=== PATIENT | female | born 1935 | race Caucasian/White ===

== ENCOUNTER 2019-05-14 14:52 | Emergency (ER) | payer OTHER ==
[~2019-05-14] VITALS: Ht 149.9 cm; Wt 86.2 kg
[~2019-05-14 14:52] MED LIST: CARB200T4 PO; CEPH500C PO; DOXE25CA2 PO; FOLI1TAB6 PO; INDA2.5T PO; MECL-87 PO; METH2.5T3 PO; RANI150C11 PO
[2019-05-14] MEDS ORDERED: ENOXAPARIN SOD 100 MG/1 ML SYRINGE SC ONE (15:30)
[2019-05-14] MEDS ORDERED: METOPROLOL TARTRATE 1MG/1ML-5ML VIAL IV ONE (15:30)
[2019-05-14 15:59] LABS: Eosinophils # (auto) 0 uL; Nucleated Red Blood Cells % 0.1 %
[2019-05-14 16:03] LABS: Basophils # (auto) 0 uL; Basophils % (auto) 0.3 % (0.0-2.0); Eosinophils % (auto) 0.2 % (0.0-7.0); Hematocrit 40.4 % (36.0-46.0); Lymphocytes # (auto) 2.2 uL; Lymphocytes % (auto) 13.9 % (10.0-50.0); Mean Corpuscular Hemoglobin 32.4 pg (28.0-32.0); Mean Corpuscular Hgb Conc. 34.6 g/dL (32.0-36.0); Mean Corpuscular Volume 93.5 fL (80.0-100.0); Monocytes # (auto) 1.2 uL; Monocytes % (auto) 7.8 % (0.0-12.0); Neutrophils # (auto) 12.1 uL; Neutrophils % (auto) 77.8 % (37.0-80.0); Red Blood Cells 4.31 10^6/uL (4.0-5.20); Red Cell Distribution Width 13.3 % (11.8-14.3); White Blood Cell 15.6 10^3/uL (4.4-10.8)
[2019-05-14 16:12] LABS: Platelet Count (auto) 553 10^3/uL (140-450)
[2019-05-14 16:16] LABS: Albumin 2.4 g/dL (3.4-5.0); Calcium 8.9 mg/dL (8.5-10.1)
[2019-05-14 16:19] LABS: BUN/Creatinine Ratio 42.7; Magnesium 1.8 mg/dL (1.6-2.6); Total Protein 7.2 g/dL (6.4-8.2)
[2019-05-14 16:20] LABS: INR 1.16 (0.9-1.15); Partial Thromboplastin Time 26.6 sec (23.64-32.05)
[2019-05-14 16:27] LABS: Potassium 2.2 mmol/L (3.5-5.1)
[2019-05-14] MEDS ORDERED: POTASSIUM CHL 20MEQ/100ML 100 ML IV SCH (16:30)
[2019-05-14] MEDS ORDERED: POTASSIUM EFFERVESENT TAB 25 MEQ PO ONE (16:30)
[2019-05-14] MEDS ORDERED: POTASSIUM CHLORIDE 40 MEQ, LIDOCAINE 1% (LOCAL ANESTH.) 4 ML in SODIUM CHL 0.9% 100 ML IV ONE (16:30)
[2019-05-14] MEDS ORDERED: IOHEXOL 350 MG/ML 100ML IJ ONE (16:32)
[2019-05-14 16:46] LABS: Urine Bacteria NONE SEEN /hpf (None Seen); Urine Blood TRACE /uL (Negative); Urine Hyaline Cast MOD /lpf (0 - 2); Urine Mucus FEW (None Seen); Urine Specific Gravity 1.024 (1.001-1.035); Urine WBC 1 /hpf (0 - 5); Urine WBC Clumps PRESENT /hpf (None Seen)
[2019-05-14] MEDS ORDERED: DILTIAZEM HCL 25 MG/5 ML VIAL IV ONE ×2 (17:30)
[2019-05-14 18:00] VITALS: BP 127/74
== END 2019-05-14 18:11 | disposition short-term general hospital (02) ==
LOC: EDUNIT# 14:52 → ER 14:52 → EDBD 14:52 → ER 18:11
DX: I74.3 Embolism and thrombosis of arteries of the lower extremities (principal); I48.91 Unspecified atrial fibrillation; E11.9 Type 2 diabetes mellitus without complications
CPT/HCPCS: 36415; 51702; 71045; 75635; 80053; 81001; 83735; 83880; 84484; 85025; 85610; 85730; 93005; 93926; 94761; 96365; 99285; J1650; J2001; J3480; Q9967

== ENCOUNTER 2019-06-01 12:16 | Inpatient (IN) | payer OTHER ==
[~2019-06-01] VITALS: Ht 149.9 cm; Wt 84.7 kg
[2019-06-01 13:16] LABS: Basophils # (auto) 0.1 uL; Eosinophils # (auto) 0.1 uL; Hemoglobin 12.9 g/dL (12.2-16.2); Nucleated Red Blood Cells % 0.1 %; White Blood Cell 9.4 10^3/uL (4.4-10.8)
[2019-06-01 13:19] LABS: Basophils % (auto) 0.9 % (0.0-2.0); Eosinophils % (auto) 0.7 % (0.0-7.0); Hematocrit 38.4 % (36.0-46.0); Lymphocytes # (auto) 1.4 uL; Lymphocytes % (auto) 15.1 % (10.0-50.0); Mean Corpuscular Hemoglobin 31.9 pg (28.0-32.0); Mean Corpuscular Hgb Conc. 33.6 g/dL (32.0-36.0); Monocytes # (auto) 0.5 uL; Monocytes % (auto) 5.8 % (0.0-12.0); Neutrophils # (auto) 7.3 uL; Neutrophils % (auto) 77.5 % (37.0-80.0); Red Blood Cells 4.04 10^6/uL (4.0-5.20); Red Cell Distribution Width 14.6 % (11.8-14.3)
[2019-06-01 13:39] LABS: Albumin 2.4 g/dL (3.4-5.0); Anion Gap 10 (5-15); Blood Urea Nitrogen 17 mg/dL (7-18); Calcium 8.3 mg/dL (8.5-10.1); Carbon Dioxide 29 mmol/L (21-32); Chloride 96 mmol/L (98-107); Glucose 147 mg/dL (74-106); Sodium 135 mmol/L (136-145)
[2019-06-01 13:45] LABS: Alanine Aminotransferase 25 U/L (13-56); Alkaline Phosphatase 167 U/L (45-117); Aspartate Aminotransferase 36 U/L (15-37); BUN/Creatinine Ratio 35.4; GFR African American 159 mL/min; GFR Non-African American 132 mL/min; Total Protein 6.5 g/dL (6.4-8.2)
[2019-06-01 14:13] LABS: Potassium 2.8 mmol/L (3.5-5.1)
[2019-06-01] MEDS ORDERED: POTASSIUM EFFERVESENT TAB 25 MEQ PO ONE (14:45)
[2019-06-01] MEDS ORDERED: DILT60TA27 PO (15:12)
[2019-06-01 15:13] LABS: Platelet Count (auto) 663 10^3/uL (140-450)
[2019-06-01] MEDS ORDERED: ONDANSETRON HCL 4 MG/2 ML VIAL IV ONE (15:15)
[2019-06-01] MEDS ORDERED: HYDR-4833 PO (15:45)
[2019-06-01] MEDS ORDERED: METF-370 PO (15:45)
[2019-06-01] MEDS ORDERED: RIVA20TA PO (15:45)
[2019-06-01 16:02] LABS: Urine Bacteria FEW /hpf (None Seen); Urine Blood 2+ /uL (Negative); Urine Budding Yeast MODERATE /hpf (None Seen); Urine Mucus FEW (None Seen); Urine Specific Gravity 1.019 (1.001-1.035); Urine WBC 42 /hpf (0 - 5)
[2019-06-01] MEDS ORDERED: cefTRIAXone 1GM/50ML D5W 50 ML IV ONE ×2 (16:30→17:45)
[2019-06-01] MEDS ORDERED: ONDANSETRON HCL 4 MG/2 ML VIAL IV PRN (17:45)
[2019-06-01] MEDS ORDERED: NITROGLYCERIN 0.4 MG SL TAB SL PRN (17:45)
[2019-06-01] MEDS ORDERED: DEXTROSE (50%) 50ML SYRG IV PRN (17:45)
[2019-06-01] MEDS ORDERED: DOCUSATE SOD 100 MG CAP PO PRN (17:45)
[2019-06-01] MEDS ORDERED: MORPHINE SULF INJ 2 MG/ML SYRINGE 1ML IV PRN ×2 (17:45)
[2019-06-01] MEDS ORDERED: ACETAMINOPHEN 500 MG TAB PO PRN (17:45)
[2019-06-01] MEDS ORDERED: VANCOMYCIN PER PHARMACY 0 MG IV SCH (17:45)
[2019-06-01] MEDS: SOD CHL 0.45% WITH 20MEQ KCL 1,000 ML IV SCH (18:52)
[2019-06-01] MEDS: VANCOMYCIN 1GM/250ML 250 ML IV SCH (20:00)
[2019-06-01 22:00] VITALS: BP 101/73
[2019-06-01] MEDS: ACCU-CHEK COMFORT CURVE STRIP VI SCH (22:00)
[2019-06-01] MEDS: DOXEPIN HCL 25 MG CAPSULE PO SCH (22:00)
--- NOTE | 2019-06-01 23:00 | NUR ---
Admitted to room 75B. Seems very tired and lethargic. Delayed response to questions. Unable to answer some questions . Very obese and unable to turn on her own. Marina in place. IV patent to right hand 20 g. Infusing fluids per orders. 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 Will reposition q2. Bed alarm placed and call light within reach
[2019-06-01] MEDS: carBAMazepine 200 MG TAB PO SCH (23:44)
[2019-06-01] MEDS: InsuLIN REG 1unit/0.01ml Soln (100units/ml) SC SCH (23:51)
[2019-06-02 02:00] VITALS: BP 101/73
--- NOTE | 2019-06-02 02:00 | NUR ---
Patient seems much more alert. unable to get comfortable. Will medicate per orders. Repositioned patient and snack given. Continuing to monitor. Calll light within reach
[2019-06-02] MEDS: SOD CHL 0.45% WITH 20MEQ KCL 1,000 ML IV SCH ×3 (03:45→23:45)
[2019-06-02 05:00] VITALS: BP 109/74
[2019-06-02 05:59] LABS: Basophils # (auto) 0.1 uL; Eosinophils # (auto) 0.1 uL; Hematocrit 36.3 % (36.0-46.0); Lymphocytes # (auto) 1.7 uL; Monocytes # (auto) 0.5 uL
[2019-06-02 06:03] LABS: Basophils % (auto) 0.7 % (0.0-2.0); Hemoglobin 12.5 g/dL (12.2-16.2); Lymphocytes % (auto) 18.9 % (10.0-50.0); Mean Corpuscular Hemoglobin 32.3 pg (28.0-32.0); Mean Corpuscular Hgb Conc. 34.3 g/dL (32.0-36.0); Mean Corpuscular Volume 94.3 fL (80.0-100.0); Monocytes % (auto) 5.2 % (0.0-12.0); Neutrophils # (auto) 6.7 uL; Neutrophils % (auto) 74.2 % (37.0-80.0); Red Blood Cells 3.85 10^6/uL (4.0-5.20); Red Cell Distribution Width 14.7 % (11.8-14.3)
[2019-06-02 06:06] LABS: Platelet Count (auto) 592 10^3/uL (140-450)
[2019-06-02 06:13] LABS: Albumin 2.4 g/dL (3.4-5.0); BUN/Creatinine Ratio 32.6; Calcium 8.4 mg/dL (8.5-10.1); Potassium 3.1 mmol/L (3.5-5.1)
[2019-06-02 06:14] LABS: INR 1.23 (0.9-1.15); Partial Thromboplastin Time 31.8 sec (23.64-32.05)
[2019-06-02 06:16] LABS: Total Protein 6.3 g/dL (6.4-8.2)
--- NOTE | 2019-06-02 06:30 | NUR ---
MRSA swab nares sent to lab. Patient resting since norco given for pain a couple hours ago. No distress noted.
[2019-06-02] MEDS: InsuLIN REG 1unit/0.01ml Soln (100units/ml) SC SCH ×4 (06:33→22:00)
[2019-06-02] MEDS: ACCU-CHEK COMFORT CURVE STRIP VI SCH ×4 (07:00→22:00)
--- NOTE | 2019-06-02 07:00 | NUR ---
Pictures taken of left AKA and left groin wound. 26 celestine to left knee. Cleansed with NS, pat dry and placed clean dressing. small amount af purulant drainage noted to both. Very sleepy and lethargic at this time. Will endorse to Daiana BERNAL
--- NOTE | 2019-06-02 08:00 | NUR ---
ASSESSMENT NOTE PATIENT IS ALERT ORIENTED X4, APPEAR VERY WEAK, AND DEPRESSED, PT HAS LEFT BKA, DRESSING DRY AND INTACT, LEFT GROIN SMALL WOUND, COVERED WITH DRY CLEAN,DRESSING, PATIENT IS UNABLE TO SELF REPOSITION, ASSISTED AT ALL TIMES EVERY 2 HOURS AND NEEDED, WITH PILLOWS TO ALTERNATED BODY PRESSURE, REESE CATHETER TO GRAVITY, PAIN 0/10, CALL LIGHT WITHIN REACH.
[2019-06-02] MEDS: RIVAROXABAN 20 MG TAB PO SCH (08:42)
[2019-06-02] MEDS: FOLIC ACID 1 MG TAB PO SCH (08:42)
[2019-06-02] MEDS: DILTIAZEM HCL 60 MG TAB PO SCH (08:43)
[2019-06-02] MEDS: FAMOTIDINE 20 MG TAB PO SCH (08:43)
[2019-06-02] MEDS: cefTRIAXone 1GM/50ML D5W 50 ML IV SCH (08:44)
[2019-06-02 09:00] VITALS: BP 111/79
--- NOTE | 2019-06-02 09:00 | NUR ---
BREAKFAST PATIENT IS VERY LOW IN ENERGY TO FEED HER SELF BREAKFAST, ASSISTED IN HER MEAL, KEPT PATIENT DRY AND CLEAN.
[2019-06-02] MEDS ORDERED: ENOXAPARIN SOD 40 MG/0.4 ML SYRINGE SC SCH (10:00)
--- NOTE | 2019-06-02 10:45 | NUR ---
WOUND NURSE DEON RN AT BED SIDE WITH SKIN ASSESSMENT AND WOUND CARE.
--- NOTE | 2019-06-02 10:50 | NUR ---
WOUND CULTURE SENT TO LAB.
[2019-06-02] MEDS ORDERED: POTASSIUM EFFERVESENT TAB 25 MEQ PO ONE (11:00)
--- NOTE | 2019-06-02 11:00 | NUR ---
WOUND CARE NOTE: Wound care in to see patient per wound care request regarding patient's wounds. Bedside nurse took photograph of patient's wounds upon admission for reference. Patient is 83 years old female with admitting diagnosis of metabolic Encephalopathy. She has history of Htn, DM, A Fib. Patient is resting in bed in Rm 275A. He's awake,alert answers questions but forgetful. She's in no stated pain at this time however mild pain noted upon turning. Patient is able to assist in turning and repositioning by grabbing onto bed rails. Her Ezekiel score is 17. Noted patient's L AKA stump is well healed with intact celestine. Bedside nurse cleansed and applied dry sterile dressing. patient's L inguinal has 12cm linear scar/incision with open area at proximal aspect measuring [id number]. Wound is red with brown and yellow necrotic tissue, scant serosanguineous drainage noted, no odor noted. On reports, patient has history of L leg DVT, has had treatment of DVT and s/p L AKA two weeks ago at [facility]. Dr. Epstein arrived at bedside to see patient and examine the wounds. Bedside nurse sent specimen for wound culture to lab for processing. Cleansed patient's Lt inguinal wound with wound cleanser, patted dry with sterile gauze, applied Thera honey gel to wound bed area, fill wound cavity with NS moistened 1/2 inch plain packing strips leaving an inch tail,covered with absorbent pad, and secured with Medipore tape. Patient tolerated well. No pressure injury noted. Reposition patient for comfort facing her L side, redistributed pressure points with pillows. Bed in low position, call mccord within reach, bed alarm on. RECOMMENDATION: Daily/PRN dressing change to L inguinal wound wound per MD order, Dietary consult, frequent turning and repositioning schedule as condition permits, redistribute pressure points with pillows, continue monitoring by wound care while patient is hospitalized. Addendum: 06/02/19 at 1619 eliza Perdomo RN Amended: Links added.
[2019-06-02 13:00] VITALS: BP 108/54
--- NOTE | 2019-06-02 13:00 | NUR ---
FAMILY PATIENT'S GRAND DAUGHTER AT BED SIDE.
[2019-06-02] MEDS: HYDROcodone-ACET 5/325MG TAB PO PRN (16:13)
--- NOTE | 2019-06-02 17:22 | NUR ---
REPOSITION PATIENT EVERY 30 MINUTES AT ALL TIMES PER HER REQUEST TO GET COMFORTABLE
[2019-06-02 17:26] VITALS: BP 115/53
--- NOTE | 2019-06-02 18:45 | NUR ---
PATIENT CONTINUE STABLE, ALL FAMILY AT BED SIDE AWARE.
--- NOTE | 2019-06-02 19:30 | NUR ---
Opening Shift Note Assumed care of patient, awake and alert. No S/S of distress/SOB or pain. Instructed on POC and to call for assist PRN, will continue to monitor for changes Q1hr and PRN.
[2019-06-02 22:00] VITALS: BP 119/88
[2019-06-02] MEDS: carBAMazepine 200 MG TAB PO SCH (22:00)
[2019-06-02] MEDS: DOXEPIN HCL 25 MG CAPSULE PO SCH (22:00)
[2019-06-02] MEDS: VANCOMYCIN 1GM/250ML 250 ML IV SCH (22:00)
[2019-06-03 05:00] VITALS: BP 120/73
[2019-06-03] MEDS: ACCU-CHEK COMFORT CURVE STRIP VI SCH ×4 (06:20→23:01)
[2019-06-03] MEDS: InsuLIN REG 1unit/0.01ml Soln (100units/ml) SC SCH ×4 (06:20→23:00)
[2019-06-03 06:32] LABS: Basophils # (auto) 0.1 uL; Basophils % (auto) 0.7 % (0.0-2.0); Eosinophils # (auto) 0.2 uL; Eosinophils % (auto) 2.5 % (0.0-7.0); Hematocrit 35.1 % (36.0-46.0); Hemoglobin 11.8 g/dL (12.2-16.2); Lymphocytes # (auto) 1.8 uL; Lymphocytes % (auto) 23.1 % (10.0-50.0); Mean Corpuscular Hemoglobin 32.5 pg (28.0-32.0); Mean Corpuscular Hgb Conc. 33.7 g/dL (32.0-36.0); Mean Corpuscular Volume 96.3 fL (80.0-100.0); Monocytes # (auto) 0.6 uL; Monocytes % (auto) 7.3 % (0.0-12.0); Neutrophils # (auto) 5.3 uL; Neutrophils % (auto) 66.4 % (37.0-80.0); Nucleated Red Blood Cells % 0.1 %; Red Blood Cells 3.65 10^6/uL (4.0-5.20); Red Cell Distribution Width 15.1 % (11.8-14.3); White Blood Cell 7.9 10^3/uL (4.4-10.8)
[2019-06-03 06:34] LABS: Platelet Count (auto) 531 10^3/uL (140-450)
[2019-06-03 07:00] LABS: Potassium 3.4 mmol/L (3.5-5.1)
--- NOTE | 2019-06-03 07:00 | NUR ---
Endorsed to Cyn BERNAL. Patient resting. Repositioned at least q1 hour through out night. Has a hard time getting comfortable. No distress noted
[2019-06-03 07:09] LABS: BUN/Creatinine Ratio 22.5; Magnesium 1.6 mg/dL (1.6-2.6)
--- NOTE | 2019-06-03 07:30 | NUR ---
Opening Shift Note Assuming care of patient at this time. Patient is resting in bed with her eyes closed. Patient does not appear to be in any pain. Patient shows no signs or symptoms of shortness of breath. Bed is locked and lowered with side rails up x2. Will instruct patient on the plan of care for today, once patient is awake and alert. Call light within reach. Will continue to round hourly and as needed.
[2019-06-03 09:00] VITALS: BP 110/56
[2019-06-03] MEDS: cefTRIAXone 1GM/50ML D5W 50 ML IV SCH (09:56)
[2019-06-03] MEDS: DILTIAZEM HCL 60 MG TAB PO SCH (10:00)
[2019-06-03] MEDS: SOD CHL 0.45% WITH 20MEQ KCL 1,000 ML IV SCH ×2 (10:09→23:10)
[2019-06-03] MEDS: FOLIC ACID 1 MG TAB PO SCH (10:10)
[2019-06-03] MEDS: FAMOTIDINE 20 MG TAB PO SCH (10:10)
[2019-06-03] MEDS: RIVAROXABAN 20 MG TAB PO SCH (10:10)
[2019-06-03 13:00] VITALS: BP 108/47
[2019-06-03] MEDS ORDERED: POTASSIUM CHL 20 Meq TABLET PO ONE (13:45)
--- NOTE | 2019-06-03 13:58 | NUR ---
FAXED OVER ORDER AND D/C SUMMARY TO MARJORIE AND SPOKE TO VICENTE ABOUT SS ORDER, SS TO WORK ON HH AND TRANSPORTATION, AND LET MARJORIE KNOW WHAT AGENCIES OBTAINED SO AUTH CAN BE SENT BY MARJORIE
--- NOTE | 2019-06-03 15:33 | NUR ---
assessment Patient is a 83 year old female who is confused. Prior to admission patient lived home with family and functioned with assistance. Per patients granddaughter Alix [phone] patient has a hospital bed, alec lift, wheelchair, and bedside commode for home use. I informed Alix patient has a consult for recently discharged from rehab. Unable to turn herself. Needs lot of assistance. Per Alix patient was sent to [facility] from [facility]. Per Alix patient was discharged from [facility] and will now return home with family. Per Alix patient has all the equipment she will need. Patient will need home health for PT on discharge. Per Alix patient will also need transportation from insurance. I informed Alix We would check to see if patient has a transport benefit. If no benefit family will have to pay for transport. Alix verbalized understanding and agreed to discharge plan home. Addendum: 06/03/19 at 1539 by Luzmaria DEJESUS Amended: Links added.
--- NOTE | 2019-06-03 16:00 | NUR ---
Call to Luzmaria Spoke with Luzmaria regarding patient's home health and transportation. Patient will have to pay out of pocket for transportation. Gave patient information to call. Home health is not yet arranged. Will follow-up.
--- NOTE | 2019-06-03 16:10 | NUR ---
Home health Patient has home health already. Gave Luzmaria information regarding patient's home health.
--- NOTE | 2019-06-03 16:26 | NUR ---
re-assessment Per Mendy residential case manager, [facility] will not pay for transport since none of the agencies they are contracted with can show medical necessity per Juan chadwick [facility]. Addendum: 06/03/19 at 1628 by Luzmaria DEJESUS Amended: Links added.
--- NOTE | 2019-06-03 16:30 | NUR ---
IV removal IV DC'd with sterile technique, catheter fully intact. Pressure dressing applied to site. Patient tolerated procedure well.
--- NOTE | 2019-06-03 17:00 | NUR ---
Wound Care/ Discharge Photos Performed wound care to patient's wounds per doctor's orders. Patient tolerated well. Discharge photos were taken at this time.
--- NOTE | 2019-06-03 17:35 | NUR ---
Call from Lead Electrical Controls Engineer Luzmaria has called. manager of creative services is heading out for today. Gave this RN information for [place] home health. Patient's own home health will not be able to be resumed until Friday.
--- NOTE | 2019-06-03 17:36 | NUR ---
[facility] Called shay hernandez. They are unsure if patient will be able to be covered because the medical customer service representative was driving and the office was currently closed. Will notify . Addendum: 06/03/19 at 1831 by DARIELA QUEAZDA RN RN [place]
--- NOTE | 2019-06-03 17:38 | NUR ---
Call to Dr. Epstein Call to Dr. Epstein at this time. Home health with patient will not resume until friday. Awaiting callback.
--- NOTE | 2019-06-03 17:45 | NUR ---
Spoke with Beulah Spoke with Beulah in case management. Home health has not been arranged. Unless doctor agrees to have patient's home health resume on Friday then patient will not be discharged.
[2019-06-03 18:06] VITALS: BP 115/78
--- NOTE | 2019-06-03 18:30 | NUR ---
IV insertion IV access obtained, via clean sterile technique by inserting 22 gauge catheter at left forearm after 1 attempt. IV secured properly. No trauma to site. Patient tolerated well.
--- NOTE | 2019-06-03 18:33 | NUR ---
Marina Catheter Marina Catheter is to stay in place when patient is discharged per Dr. Epstein.
--- NOTE | 2019-06-03 19:05 | NUR ---
Holding Discharge Spoke with Dr. Epstein at this time. is aware that home health has not been arranged. Per Dr. Epstein, keep patient and will work on discharge tomorrow.
--- NOTE | 2019-06-03 19:30 | NUR ---
Opening Shift Note Assumed care of patient, awake and alert. No S/S of distress/SOB or pain. Instructed on POC and to call for assist PRN, daughter at bedside. Will continue to monitor for changes Q1hr and PRN.
--- NOTE | 2019-06-03 19:36 | NUR ---
Closing Shift Note Patient is resting in bed. Patient denies pain. Report given. Will endorse care to the bench grinder RN. Granddaughter at bedside.
--- NOTE | 2019-06-03 19:40 | NUR ---
IV to left forearm infiltrated, started new IV to right hand 24 gauge with good blood return. Patient tolerated procedure well.
--- NOTE | 2019-06-03 19:50 | NUR ---
Pt's Marina cath leaking. Discontinued Marina and inserted new Marina Fr 18 with 10 cc balloon with good urine return. Marina patent and intact with moderate amount of clear light cuco urine with no sediments. Good perineal care provided. Will continue to monitor.
--- NOTE | 2019-06-03 19:55 | NUR ---
Wound dressing to left groin dislodged. Dressing change done. Patient tolerated procedure well.
[2019-06-03] MEDS: VANCOMYCIN 1GM/250ML 250 ML IV SCH (20:00)
--- NOTE | 2019-06-03 21:30 | NUR ---
Received call from [facility] confirming patient's discharge to home held today.
[2019-06-03 22:00] VITALS: BP 90/60
[2019-06-03] MEDS: carBAMazepine 200 MG TAB PO SCH (22:26)
[2019-06-03] MEDS: DOXEPIN HCL 25 MG CAPSULE PO SCH (22:27)
[2019-06-04 05:00] VITALS: BP 125/76
[2019-06-04] MEDS: ACCU-CHEK COMFORT CURVE STRIP VI SCH ×4 (06:29→22:05)
[2019-06-04] MEDS: InsuLIN REG 1unit/0.01ml Soln (100units/ml) SC SCH ×4 (06:29→22:00)
[2019-06-04] MEDS: SOD CHL 0.45% WITH 20MEQ KCL 1,000 ML IV SCH ×2 (06:29→15:45)
[2019-06-04 07:24] LABS: BUN/Creatinine Ratio 25.8; Calcium 8.1 mg/dL (8.5-10.1); Potassium 3.5 mmol/L (3.5-5.1)
[2019-06-04 09:00] VITALS: BP 124/68
[2019-06-04] MEDS: DILTIAZEM HCL 60 MG TAB PO SCH (10:00)
[2019-06-04] MEDS: cefTRIAXone 1GM/50ML D5W 50 ML IV SCH (10:24)
[2019-06-04] MEDS: RIVAROXABAN 20 MG TAB PO SCH (10:25)
[2019-06-04] MEDS: FOLIC ACID 1 MG TAB PO SCH (10:25)
[2019-06-04] MEDS: FAMOTIDINE 20 MG TAB PO SCH (10:26)
--- NOTE | 2019-06-04 10:35 | NUR ---
plan of care Spoke with Dr. Epstein regarding patient's plan of care and pending discharge. Dr. Epstein is aware of home health and transportation issues. Will continue to facilitate discharge appropriately.
--- NOTE | 2019-06-04 10:40 | NUR ---
[facility] Spoke with Jessica at [facility]. They are unable to take patient at this time due to short staffing. Notified .
--- NOTE | 2019-06-04 10:53 | NUR ---
Re: Call to Amy Figuring out a discharge plan. Possible SNF placement or other home health companies that can take patient sooner. Will speak to family about SNF placement.
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
--- NOTE | 2019-06-04 11:00 | NUR ---
Call to [facility] Notified Jessica that patient's family does not want patient to return to SNF.
--- NOTE | 2019-06-04 11:10 | NUR ---
Call from Granddaughter Alix called voicing her concerns about patient's discharge and care. Spoke for approximately 15 minutes, addressing all questions and concerns.
--- NOTE | 2019-06-04 11:47 | NUR ---
Nutrition consult/assessment Notes please see attached link for complete assessment Est. Needs ABW [id number] kcal (20-23kcal/kgBW), 62-74 gms pro (1.0-1.2 gms/kgBW r/t wounds). Will continue to monitor pertinent labs and reassess nutrient need prn Addendum: 06/04/19 at [address] Amended: Links added.
[2019-06-04 13:00] VITALS: BP 136/75
--- NOTE | 2019-06-04 13:11 | NUR ---
Fax to [facility] Sent fax to [facility] at this time regarding patient's wound care order per Jessica human services case manager at [facility]'s request.
--- NOTE | 2019-06-04 16:15 | NUR ---
Re: Call to Process Tank Tender Call to human services case manager at this time, Mendy. Left a message regarding an update with patient's discharge. Left a message. Awaiting callback.
--- NOTE | 2019-06-04 16:32 | NUR ---
Call to [facility] Call to [facility] at this time. On hold for over 5 minutes. Not possible to leave message.
--- NOTE | 2019-06-04 16:44 | NUR ---
Call to Dr. Epstein Call to Dr. Epstein at this time to notify of patient's home health and transportation still not being arranged. Left a message. Awaiting call back.
[2019-06-04 17:15] VITALS: BP 126/67
--- NOTE | 2019-06-04 17:15 | NUR ---
Page to housecalls nurse Track Grinder Operator Page to phone operator social work manager. Per patient's granddaughter, patient should be transported today, they spoke with "Yonatan." When asked about home health, granddaughter unaware. Beulah called back. Beulah aware that patient should be transported once [facility] calls her with an authorization code for [facility]. Beulah, however, unaware about home health. Beulah will find out about home health and get back to me.
--- NOTE | 2019-06-04 18:00 | NUR ---
Wound Care Performed wound care to patient's wounds per doctor's orders. Patient tolerated well. Discharge photos were taken at this time.
[2019-06-04] MEDS: HYDROcodone-ACET 5/325MG TAB PO PRN (18:01)
--- NOTE | 2019-06-04 18:24 | NUR ---
Per consult, patient received orders to receive home health and wound care services. Faxed referral to [facility], and per Xu, they have agreed to accept this case and start of care will be 06.07.19. Addendum: 06/04/19 at 1827 by MARIANNE LIANG Amended: Links added.
--- NOTE | 2019-06-04 19:21 | NUR ---
Closing Shift Note Patient has been medicated for pain. Patient resting in bed. Patient shows no signs or symptoms of distress. Report given. Will endorse care to the instrument panel assembler RN.
--- NOTE | 2019-06-04 19:26 | NUR ---
[facility] CALLED ABOUT GETTING THIS PT HOME. PT IS BEDFAST AND WILL NEED NON-EMERGENT TRANSPORTATION HOME. THEY SAID THEY HAVE BEEN WAITING FOR OUR CASE MANAGEMENT TO CALL BACK WITH TRANSPORTATION DETAILS. I CALLED [facility]NAG[facility] AT [phone], AND GAVE HER NUMBERS TO [facility] [phone] AND [facility] [phone] OR [phone] TO MAKE ARRANGEMENTS FOR TRANSPORTATION.
--- NOTE | 2019-06-04 19:50 | NUR ---
Opening shift note Patient in bed sleeping with eyes closed, opens eyes to verbal stimuli. Patient's respiration even and unlabored, denies pain and discomfort at this time. Marina cath draining moderate amount of cuco urine with no sediments. Noted SS notes, awaiting further instruction from [facility] at this time.
[2019-06-04] MEDS: VANCOMYCIN 1GM/250ML 250 ML IV SCH (20:24)
--- NOTE | 2019-06-04 20:52 | NUR ---
IV to right hand infiltrated, started new IV to left forearm 24 gauge with good blood return. Patient tolerated procedure with minimal discomfort. Will continue to monitor.
[2019-06-04 22:00] VITALS: BP 101/62
[2019-06-04] MEDS: carBAMazepine 200 MG TAB PO SCH (22:04)
[2019-06-04] MEDS: DOXEPIN HCL 25 MG CAPSULE PO SCH (22:04)
[2019-06-05 04:51] VITALS: BP 121/77
[2019-06-05] MEDS: InsuLIN REG 1unit/0.01ml Soln (100units/ml) SC SCH ×4 (06:15→22:00)
[2019-06-05] MEDS: ACCU-CHEK COMFORT CURVE STRIP VI SCH ×4 (06:15→22:00)
[2019-06-05] MEDS: SOD CHL 0.45% WITH 20MEQ KCL 1,000 ML IV SCH ×3 (06:15→21:45)
--- NOTE | 2019-06-05 06:45 | NUR ---
No call received from [facility] this shift. Will endorse to am shift nurse.
--- NOTE | 2019-06-05 08:45 | NUR ---
Call from [facility] Call from [facility] bilingual call center representative. They are still working on transportation. So far the companies they have spoken with want "santiago up front." Machine Load Clerk to try one more company and after that would notify superior management to step in to arrange transport. Machine Load Clerk states, "wanted to touch base with you and I will be in touch." Awaiting callback with more news.
[2019-06-05 09:00] VITALS: BP 128/91
[2019-06-05] MEDS: VANCOMYCIN 500 MG in D5W 5% 100 ML IV SCH ×2 (09:20→20:00)
[2019-06-05] MEDS: DILTIAZEM HCL 60 MG TAB PO SCH (10:00)
[2019-06-05] MEDS: FAMOTIDINE 20 MG TAB PO SCH (10:00)
[2019-06-05] MEDS: FOLIC ACID 1 MG TAB PO SCH (10:00)
--- NOTE | 2019-06-05 10:30 | NUR ---
Patient Refused Meds Patient is refusing meds at this time. Patient asked how many medications she had. Instructed patient on the need for medications. Patient continues to refuse.
[2019-06-05] MEDS: cefTRIAXone 1GM/50ML D5W 50 ML IV SCH (11:37)
--- NOTE | 2019-06-05 12:00 | NUR ---
Update Dr. Epstein updated on patient's status. [facility] unable to provide home health until 06/07/19. [facility] has still been unable to transport patient. Dr. Epstein wants patient to stay today and discharge tomorrow. Will notify [facility].
--- NOTE | 2019-06-05 12:39 | NUR ---
Call to [facility] Call to [facility] at this time. Dr. Epstein has changed discharge date to 06/06/19 due to patient's home health starting on 06/07. [facility] guest service representative says there is still no transportation available.
[2019-06-05 13:00] VITALS: BP 117/67
[2019-06-05 17:00] VITALS: BP 104/60
--- NOTE | 2019-06-05 17:00 | NUR ---
Call to [facility] Call to [facility]. No answer.
--- NOTE | 2019-06-05 18:30 | NUR ---
Wound Care Performed wound care to patient's wounds per doctor's orders. Patient tolerated well.
[2019-06-05] MEDS: RIVAROXABAN 15 MG TAB PO SCH (18:55)
--- NOTE | 2019-06-05 19:33 | NUR ---
Closing Shift Note Patient has been medicated for pain. Patient resting in bed. Patient shows no signs or symptoms of distress. Report given. Will endorse care to the assembler 1st shift RN.
--- NOTE | 2019-06-05 20:00 | NUR ---
IV TO LEFT FOREARM DISLODGED. INSERTED NEW IV TO LEFT HAND 24 GAUGE WITH GOOD BLOOD RETURN. PT TOLERATED PROCEDURE WITH MINIMAL DISCOMFORT. WILL CONTINUE TO MONITOR.
[2019-06-05 22:00] VITALS: BP 134/92
[2019-06-05] MEDS: carBAMazepine 200 MG TAB PO SCH (22:00)
[2019-06-05] MEDS: DOXEPIN HCL 25 MG CAPSULE PO SCH (22:00)
--- NOTE | 2019-06-06 02:27 | NUR ---
RECEIVED REPORT FROM ERASMO BERNAL. PATIENT SLEEPING .NO S/S OF DISTRESS NOTED. REESE CATH IN PLACE DRAINING GRAVITY. BED IN LOWEST POSITION WITH SIDE RAILS UP X 2. CALL FARR WITHIN REACH. ALARM ON. CONTINUE TO MONITOR FOR CHANGES Q1H AND PRN.
[2019-06-06] MEDS: SOD CHL 0.45% WITH 20MEQ KCL 1,000 ML IV SCH ×2 (02:49→17:47)
[2019-06-06 05:00] VITALS: BP 127/78
[2019-06-06] MEDS: ACCU-CHEK COMFORT CURVE STRIP VI SCH ×4 (06:09→21:48)
[2019-06-06] MEDS: InsuLIN REG 1unit/0.01ml Soln (100units/ml) SC SCH ×4 (06:09→22:03)
--- NOTE | 2019-06-06 06:09 | NUR ---
REPOSITIONED PATIENT. PATIENT TOLERATED WELL. ACCU-CHECK, BS 91.NO COVERAGE. CONTINUE TO MONITOR.
[2019-06-06 07:47] VITALS: BP 122/76
[2019-06-06] MEDS: VANCOMYCIN 500 MG in D5W 5% 100 ML IV SCH ×2 (08:50→20:36)
[2019-06-06] MEDS: FOLIC ACID 1 MG TAB PO SCH (09:58)
[2019-06-06] MEDS: cefTRIAXone 1GM/50ML D5W 50 ML IV SCH (09:58)
[2019-06-06] MEDS: FAMOTIDINE 20 MG TAB PO SCH (09:59)
[2019-06-06] MEDS: DILTIAZEM HCL 60 MG TAB PO SCH (10:02)
[2019-06-06 13:00] VITALS: BP 93/64
[2019-06-06 17:00] VITALS: BP 109/59
--- NOTE | 2019-06-06 17:45 | NUR ---
IV REMOVED ON LEFT WRIST WITH CATHETER INTACT, PATIENT TOLERATED WELL.
[2019-06-06] MEDS: RIVAROXABAN 15 MG TAB PO SCH (17:47)
--- NOTE | 2019-06-06 19:51 | NUR ---
RECEIVED PATIENT FROM DAY SHIFT RN. PATIENT RESTING IN BED WITH EYES CLOSED. NO S/S OF DISTRESS NOTED. DENIED PAIN FOR NOW. NO IV ACCESS FOR NOW. WILL TRY IT LATER. REESE CATH IN PLACE DRAINING GRAVITY. DRESSING C/D/I. POC INSTRUCTED AND ENCOURAGED PATIENT TO CALL FOR FOOTBALL COACH IF NEEDED. BED IN LOWEST POSITION WITH SIDE RAILS UP X 2. CALL FARR WITHIN REACH. ALARM ON. CONTINUE TO MONITOR FOR CHANGES Q1H AND PRN.
--- NOTE | 2019-06-06 20:37 | NUR ---
IV insertion IV access obtained, via clean sterile technique by inserting [22] gauge catheter at [RW] after [1] attempt(s). IV secured properly. No trauma to site. Patient tolerated well. NOTE: []
--- NOTE | 2019-06-06 20:38 | NUR ---
VANCO TROUGH RESULT, 11.6. VANCOMYCIN GIVEN ORDERED. CONTINUE TO MONITOR.
[2019-06-06] MEDS: DOXEPIN HCL 25 MG CAPSULE PO SCH (21:47)
[2019-06-06] MEDS: carBAMazepine 200 MG TAB PO SCH (21:47)
[2019-06-06 22:00] VITALS: BP 125/78
[2019-06-06] MEDS: HYDROcodone-ACET 5/325MG TAB PO PRN (22:03)
--- NOTE | 2019-06-06 22:03 | NUR ---
ORAL MEDICATION GIVEN ORDERED. PATIENT SWALLOWED WELL. NO S/S OF ASPIRATION NOTED. MEDICATED PATIENT FOR PAIN @ 04/05. ACCU-CHECK, BS 139. INSULIN GIVEN ORDERED. CONTINUE TO MONITOR.
--- NOTE | 2019-06-06 23:02 | NUR ---
REPOSITIONED PATIENT. PATIENT TOLERATED WELL. CONTINUE TO MONITOR.
--- NOTE | 2019-06-07 03:07 | NUR ---
PATIENT SLEEPING. NO S/S OF DISTRESS NOTED. CONTINUE TO MONITOR.
[2019-06-07] MEDS: SOD CHL 0.45% WITH 20MEQ KCL 1,000 ML IV SCH ×3 (03:21→23:45)
[2019-06-07 05:00] VITALS: BP 131/68
[2019-06-07] MEDS: InsuLIN REG 1unit/0.01ml Soln (100units/ml) SC SCH ×4 (06:28→21:34)
[2019-06-07] MEDS: ACCU-CHEK COMFORT CURVE STRIP VI SCH ×4 (06:28→21:37)
--- NOTE | 2019-06-07 06:29 | NUR ---
ACCU-CHECK, BS 79.NO COVERAGE. CONTINUE TO MONITOR.
--- NOTE | 2019-06-07 07:30 | NUR ---
Opening Shift Note RECEIVED REPORT FROM NOC RN. Assumed care of patient, awake and alert. No S/S of distress/SOB or pain. BED IN LOWEST, LOCKED POSITION WITH SIDERAILS UP x2. Instructed on POC and to call for assist PRN, will continue to monitor for changes Q1hr and PRN.
[2019-06-07 08:05] VITALS: BP 112/69
[2019-06-07] MEDS: VANCOMYCIN 500 MG in D5W 5% 100 ML IV SCH ×2 (08:32→20:45)
[2019-06-07 09:18] VITALS: BP 112/69
[2019-06-07] MEDS: DILTIAZEM HCL 60 MG TAB PO SCH (10:05)
[2019-06-07] MEDS: cefTRIAXone 1GM/50ML D5W 50 ML IV SCH (10:05)
[2019-06-07] MEDS: FOLIC ACID 1 MG TAB PO SCH (10:05)
[2019-06-07] MEDS: FAMOTIDINE 20 MG TAB PO SCH (10:05)
--- NOTE | 2019-06-07 11:35 | NUR ---
Per Juan at [facility], pt has auth to stay one more day and will be picked up at 1330 hrs on 06-08-19 to be taken home[address] [facility] will start care 24-48 hrs post d/c
--- NOTE | 2019-06-07 11:38 | NUR ---
DR. MESSINA AT BEDSIDE. UPDATED ON TRANSPORTATION FOR PATIENT.
--- NOTE | 2019-06-07 11:47 | NUR ---
[facility] will transport home tomorrow
[2019-06-07 12:47] VITALS: BP 107/68
--- NOTE | 2019-06-07 16:08 | NUR ---
received call from Juan at [facility], I called back and spoke to Candy web applications administrator with her stating [place] transport canceled [employer] for tomorrow due to lack of co payment from pt and was told by [facility] that family will have to pay for transport or if we can give taxi voucher. Luzmaria ana called and informed
--- NOTE | 2019-06-07 16:30 | NUR ---
RECEIVED CALL FROM [facility] ADVISING THAT TRANSPORTATION WILL BE AT 0900 BY [facility].
[2019-06-07 17:33] VITALS: BP 110/61
[2019-06-07] MEDS: RIVAROXABAN 15 MG TAB PO SCH (17:37)
--- NOTE | 2019-06-07 19:45 | NUR ---
Opening shift note Patient in bed awake and oriented x 4, verbally coherent, able to make needs known. Patient's respiration even and unlabored, denies pain and discomfort at this time. Plan of care discussed, patient verbalized understanding. All needs attended, will continue to monitor.
--- NOTE | 2019-06-07 19:50 | NUR ---
Pt's IV to RFA infiltrated. Started new IV to left forearm 24 gauge x 1 attempt with good blood return. Patient tolerated procedure with minimal discomfort. Will continue to monitor.
[2019-06-07] MEDS: DOXEPIN HCL 25 MG CAPSULE PO SCH (21:33)
[2019-06-07] MEDS: carBAMazepine 200 MG TAB PO SCH (21:34)
[2019-06-07 22:00] VITALS: BP 130/72
[2019-06-08 05:00] VITALS: BP 120/81
[2019-06-08] MEDS: ACCU-CHEK COMFORT CURVE STRIP VI SCH (06:15)
[2019-06-08] MEDS: InsuLIN REG 1unit/0.01ml Soln (100units/ml) SC SCH (06:16)
[2019-06-08 06:49] LABS: Basophils # (auto) 0 uL; Basophils % (auto) 0.5 % (0.0-2.0); Eosinophils # (auto) 0.1 uL; Eosinophils % (auto) 2.8 % (0.0-7.0); Hemoglobin 11.7 g/dL (12.2-16.2); Lymphocytes # (auto) 1.4 uL; Lymphocytes % (auto) 25.8 % (10.0-50.0); Mean Corpuscular Hemoglobin 32.4 pg (28.0-32.0); Mean Corpuscular Hgb Conc. 34.3 g/dL (32.0-36.0); Mean Corpuscular Volume 94.5 fL (80.0-100.0); Monocytes # (auto) 0.7 uL; Monocytes % (auto) 12.5 % (0.0-12.0); Neutrophils # (auto) 3.1 uL; Neutrophils % (auto) 58.4 % (37.0-80.0); Nucleated Red Blood Cells % 0.1 %; Platelet Count (auto) 443 10^3/uL (140-450); Red Cell Distribution Width 15.5 % (11.8-14.3); White Blood Cell 5.2 10^3/uL (4.4-10.8)
[2019-06-08 06:56] LABS: Potassium 3.3 mmol/L (3.5-5.1)
[2019-06-08 07:01] LABS: BUN/Creatinine Ratio 19.4; Calcium 8.1 mg/dL (8.5-10.1); Magnesium 1.7 mg/dL (1.6-2.6)
[2019-06-08 08:05] VITALS: BP 93/61
[2019-06-08] MEDS: VANCOMYCIN 500 MG in D5W 5% 100 ML IV SCH (08:32)
[2019-06-08 08:54] VITALS: BP 93/61
--- NOTE | 2019-06-08 09:15 | NUR ---
[facility] AT BEDSIDE FOR TRANSPORTATION.
--- NOTE | 2019-06-08 10:00 | NUR ---
ATTEMPTED TO CALL PATIENT'S GRANDDAUGHTER 'MARQUISE' TO ADVISE OF PATIENT BEING TRANSPORTED. NO ANSWER.
--- NOTE | 2019-06-08 10:18 | NUR ---
Discharge instructions given as ordered. Encourage to follow up with PMD as instructed. All questions and concerns addressed. Patient verbalized understanding. Medication reconciliation form completed and copy given to patient. IV removed with catheter intact, pressure dressing applied. Telemetry unit returned to [facility]. Patient taken to AMBULANCE via [facility] with all personal belongings, accompanied by [facility] staff. No distress noted at time of departure.
--- NOTE | 2019-06-08 10:52 | NUR ---
Received a call from Xu from [facility] requesting an updated order for home health as he stated it expires after two days. Called [facility]-spoke to Dipti (unit sec) and was advised that they already picked the patient up, and she transferred me to the nurse Greer-DOLORES attending while patient was inhouse. Advised of the request for update referral, he advised he would inform the doctor. Addendum: 06/08/19 at 1056 by MARIANNE LIANG SS Amended: Links added.
--- NOTE | 2019-06-08 12:50 | NUR ---
Faxed updated home health order to Jacinto at [facility]. Addendum: 06/08/19 at 1251 by MARIANNE LIANG SS Amended: Links added.
== END 2019-06-08 10:00 | disposition home health service (06) | DRG 689 ==
LOC: EDBD 12:16 → ER 12:33 → TELE 12:34 → TELE-WESTW 22:12
PROVIDERS: ADMIT Nurse Practitioner Acute Care; ATTEND Internal Medicine Geriatric Medicine
DX: N39.0 Urinary tract infection, site not specified (principal); G93.41 Metabolic encephalopathy; T81.30XA Disruption of wound, unspecified, initial encounter; D68.59 Other primary thrombophilia; I48.91 Unspecified atrial fibrillation; E11.9 Type 2 diabetes mellitus without complications; I10 Essential (primary) hypertension; I67.2 Cerebral atherosclerosis; E11.51 Type 2 diabetes mellitus with diabetic peripheral angiopathy without gangrene; E87.6 Hypokalemia; E66.9 Obesity, unspecified; Z89.612 Acquired absence of left leg above knee; Z79.84 Long term (current) use of oral hypoglycemic drugs; Z79.01 Long term (current) use of anticoagulants; Z79.899 Other long term (current) drug therapy; Z87.440 Personal history of urinary (tract) infections; Z82.49 Family history of ischemic heart disease and other diseases of the circulatory system; Z68.37 Body mass index [BMI] 37.0-37.9, adult; Z86.718 Personal history of other venous thrombosis and embolism; Y92.89 Other specified places as the place of occurrence of the external cause
CPT/HCPCS: 36415; 51702; 70450; 80048; 80053; 80061; 80202; 81001; 82962; 83036; 83605; 83735; 84484; 85025; 85610; 85730; 87040; 87081; 87205; 93005; 94761; 96365; 96366; 96367; 96375; G0378; J0696; J1815; J2405; J7060